=== PATIENT | female | born 1955 | race Caucasian/White ===

== ENCOUNTER 2019-11-05 10:34 | Inpatient (IN) ==
[2019-11-05] MEDS ORDERED: ONDANSETRON 4 MG/2 ML VIAL IV PRN ×4 (11:18→16:09)
--- NOTE | 2019-11-05 11:21 | Cat Scan Report ---
INDICATION: flank pain, hematuria COMPARISON: Previous abdominal MRI scan dated 01/28/2019. Previous abdominal ultrasound dated 01/08/2019. Previous CT scan dated 12/16/2007 TECHNIQUE: Axial images were obtained through the abdomen and pelvis. Sagittally and coronally reformatted images. FINDINGS: Lung bases:No pulmonary parenchymal density. No calcified or noncalcified nodule. No pleural or pericardial effusion Liver:Negative to the limits of noncontrast enhanced examination. Liver contour is smooth without evidence for cirrhosis Gallbladder, billary:Surgical clips in the gallbladder fossa. No dilated bile ducts Spleen:No splenomegaly Pancreas:No pancreatic mass. No peripancreatic abnormality Adrenal glands:Negative Kidneys, ureters, bladder: Negative left kidney. No hydronephrosis. No obstructing or nonobstructing calculi. No detectable left renal mass Severe right hydronephrosis and dilated right renal pelvis. Appearance is consistent with congenital ureteropelvic junction obstruction. Hydronephrosis is slightly worse than on 12/16/2007. Findings are essentially unchanged since 01/08/2019 and 01/28/2019. No obstructing or nonobstructing right renal calculi. No detectable mass No hydroureter. No ureteral stone No bladder calculi. Bladder wall appears relatively thick but a discrete mass is not identified. Bladder mildly distended. Gastrointestinal: Surgical sutures at the cecum. No detectable colonic mass. There is no diverticulosis or diverticulitis. No evidence for appendicitis. Small bowel is negative. No mechanical small bowel obstruction. Vascular:There is extensive atherosclerotic calcification. There is ectasia of the distal descending thoracic aorta. This measures 2.7 cm in AP dimension. Infrarenal abdominal aorta measures 1.9 cm in AP dimension. Lymphatic:No retroperitoneal adenopathy. No significant mesenteric adenopathy. Mesentery, peritoneum:No free intraperitoneal fluid. No intra-abdominal abscess. No pneumoperitoneum Reproductive:Prostate is not enlarged Musculoskeletal:No lumbar compression fractures. Multilevel degenerative disc disease. There is L4-5 anterolisthesis due to severe degenerative facet arthropathy. Sacrum and pelvis are negative. Hips are negative. No fracture. No lytic lesion. IMPRESSION: 1. Severe right hydronephrosis and dilated right renal pelvis consistent with congenital ureteropelvic junction obstruction. No obstructing calculi. These findings are chronic 2. Severe atherosclerotic disease. No abdominal aortic aneurysm 3. Multilevel degenerative disc disease. Facet arthropathy with L4-5 anterolisthesis The exam was performed using radiation dose optimization techniques including, but not limited to, automated exposure control, adjustment of the mA and/or kV according to patient size and use of iterative reconstruction technique. Interpreted and Authenticated by: Elmer Leslie 11/05/19
[2019-11-05 11:45] LABS: Basophils # (Auto) 0.08 K/mcL (0.00-0.30); Basophils % (Auto) 0.4 % (0.0-2.0); Eosinophils # (Auto) 0.03 K/mcL (0.00-0.70); Eosinophils % (Auto) 0.2 % (0.0-7.0); Granulocytes % (Auto) 80.5 % (38.0-78.0); Hematocrit 41.4 % (34.1-44.9); Hemoglobin 13.9 g/dL (11.2-15.7); Lymphocytes # (Auto) 1.98 K/mcL (1.50-4.80); Mean Cell Volume 98.3 fL (80.0-100.0); Mean Corpuscular HGB Conc 33.6 g/dL (31.0-36.0); Mean Platelet Volume 10.4 fL (7.4-10.4); Monocytes # (Auto) 1.41 K/mcL (0.10-0.90); Monocytes % (Auto) 7.9 % (1.0-12.0); Platelet Count 280 K/mcL (140-440); RBC 4.21 M/mcL (3.59-5.38); Red Cell Distribution Width 13.3 % (11.5-14.5); WBC 17.9 K/mcL (4.50-11.00)
[2019-11-05] MEDS ORDERED: cefTRIAXone 1 GM VIAL IV ONE (12:05)
--- NOTE | 2019-11-05 12:50 | Emergency Department Note ---
General Adult HPI - General Chief complaint: Flank Pain Stated complaint: flank pain Time Seen by Provider: 11/05/19 10:41 Source: patient Mode of arrival: ambulatory Limitations: no limitations - History of Present Illness HPI Narrative: Patient presents emergency department for evaluation of dysuria and hematuria. Symptoms started last night. Patient had associated flank pain. She describes an episode yesterday which lasted for about an hour where she had uncontrollable shaking chills. She has prior history of congenital renal abnormalities. No prior history of kidney stones. No nausea or vomiting. No other complaints. - Related Data Home Medications Medication Instructions Recorded Confirmed docusate calcium 240 mg capsule 240 mg PO QDAY cap 01/11/15 11/05/19 aspirin 81 mg tablet,delayed 81 mg PO QDAY 07/10/16 11/05/19 release lithium carbonate 300 mg capsule 300 mg PO QPM cap 07/26/17 11/05/19 lorazepam 0.5 mg tablet 0.5 mg PO .Q6-8H PRN tab 05/16/18 11/05/19 cholecalciferol (vitamin D3) 100 4,000 unit PO QDAY 08/06/18 11/05/19 mcg (4,000 unit) capsule quetiapine 50 mg tablet 50 mg PO QHS tab 01/06/19 11/05/19 Previous Rx's Medication Instructions Recorded tramadol 50 mg tablet 50 mg PO Q4H PRN #180 tab 09/03/19 amlodipine 5 mg tablet 5 mg PO BID #180 tab 09/10/19 metoprolol tartrate 25 mg tablet 12.5 mg PO BID #135 tab 09/30/19 losartan 25 mg tablet 25 mg PO BID #90 tab 10/08/19 Allergies Allergy/AdvReac Type Severity Reaction Status Date / Time diazepam [From Valium] Allergy Unknown Confusion Verified 11/05/19 10:37 Review of Systems Review of Systems: As above, all other systems reviewed and negative. Past Medical History - Past Medical History Attestation: Yes: The following information was validated with the patient. [facility] Narrative: Reviewed, please see nursing documentation - Social History smoking status: Current every day smoker Physical Exam Limitations: no limitations General appearance: alert Head: atraumatic, normocephalic Eye: Present: normal appearance, PERRL, EOMI ENT: Present: normal exam Neck: Present: normal inspection Abdominal: Present: other (Soft, nondistended, no tenderness elicited on palpation.) Extremities: Present: normal inspection Neurological: Present: alert, oriented X3, CN II-XII intact Psychiatric: Present: normal affect Skin: Present: warm Course Vital Signs Temperature 100.0 F H 11/05/19 10:35 Pulse Rate 82 11/05/19 10:35 Respiratory Rate 16 11/05/19 10:35 Blood Pressure 138/108 11/05/19 10:35 Temperature 100.5 F H 11/05/19 12:12 Pulse Rate 71 11/05/19 12:12 Respiratory Rate 16 11/05/19 12:12 Blood Pressure 134/67 11/05/19 12:12 Pulse Oximetry (%) 97 11/05/19 12:12 Medical Decision Making - MDM Narrative Medical decision making narrative: Labs reviewed as per the electronic medical record. CMP is pending and had to be redrawn due to hemolysis. Patient is given Rocephin. Blood cultures were ordered. On recheck of her vitals she is now meeting sepsis criteria. She is hydrated with IV fluids. I spoke with Dr. Olivarez on-call hospitalist. Case reviewed in detail over the phone. Hospitalist agreed with admission. I discussed findings with the patient. Her questions were answered. She is agreeable with the plan. Impression: UTI, sepsis Plan: As above - Lab Data Lab results reviewed: Yes I reviewed the patient's lab results. Result diagrams: 11/05/19 11:03 11/05/19 11:03 Lab Results 11/05/19 11/05/19 11/05/19 Range/Units 11:03 11:03 11:03 WBC 17.9 H (4.50-11.00) K/mcL RBC 4.21 (3.59-5.38) M/mcL Hgb 13.9 (11.2-15.7) g/dL Hct 41.4 (34.1-44.9) % MCV 98.3 (80.0-100.0) fL MCH 33.0 (26.0-34.0) pg MCHC 33.6 (31.0-36.0) g/dL RDW 13.3 (11.5-14.5) % Plt Count 280 (140-440) K/mcL MPV 10.4 (7.4-10.4) fL Gran % 80.5 H (38.0-78.0) % Lymph % (Auto) 11.0 L (15.5-49.0) % [place] % (Auto) 7.9 (1.0-12.0) % Eos % (Auto) 0.2 (0.0-7.0) % Baso % (Auto) 0.4 (0.0-2.0) % Gran # 14.44 H (1.80-8.00) K/mcL Lymph # (Auto) 1.98 (1.50-4.80) K/mcL [place] # (Auto) 1.41 H (0.10-0.90) K/mcL Eos # (Auto) 0.03 (0.00-0.70) K/mcL Baso # (Auto) 0.08 (0.00-0.30) K/mcL VBG Lactic Acid 1.9 (0.5-2.0) mmol/L Sodium TNP Potassium TNP Chloride TNP Carbon Dioxide TNP Anion Gap TNP BUN TNP Creatinine TNP GFR Calculation TNP Glucose TNP Calcium TNP Total Bilirubin TNP AST TNP ALT TNP Alkaline Phosphatase TNP Total Protein TNP Albumin TNP Globulin TNP Albumin/Globulin Ratio TNP - Radiology Data Radiology results reviewed: Yes I reviewed the patient's radiology results. Disposition Pt seen by BUDGET EXAMINER/PA only: No Clinical Impression: UTI (urinary tract infection), Sepsis Disposition: Still a Patient Referrals: Rahul Hartmann MD [Primary Care Provider] -
[2019-11-05] MEDS ORDERED: 0.9 % SODIUM CHLORIDE 1,000 ML IV ONE (12:51)
[2019-11-05 13:24] LABS: Chloride 101 mmol/L (96-108)
[2019-11-05 13:26] LABS: Appearance,Urine CLOUDY; Bacteria,Urine 0 /hpf (0); Bilirubin,Urine NEG (NEG); Color,Urine AMBER; Culture Indicated,Urine YES; Glucose,Urine (UA) NEGATIVE (NEG); Ketones,Urine NEG (NEG); Leukocyte Esterase,Urine 250 /uL (NEG); Nitrate,Urine POS (NEG); Protein,Urine 100 mg/dL (NEG); Urine Blood 0.2 mg/dL (<0.03); Urine RBC 152 /hpf (0-1); Urine Squamous Epithelial Cell 1 /hpf (0-4); Urine Transitional Epi Cells 3 /hpf (0-2); Urine WBC > 182 /hpf (0-4); Urobilinogen,Urine NEG (NEG)
[2019-11-05 13:32] LABS: ALT/SGPT 14 U/l (0-40); AST/SGOT 22 U/l (0-37); Albumin 4.1 gm/dL (3.2-5.2); Albumin/Globulin Ratio 1.2 (1.0-2.3); Alkaline Phosphatase 77 U/L (39-117); Bilirubin,Total 0.4 mg/dL (0.0-1.0); Blood Urea Nitrogen 13 mg/dl (8-23); Calcium 10.4 mg/dl (8.6-10.4); Carbon Dioxide 25 mmol/L (22-30); Globulin 3.3 gm/dL (2.2-3.7); Glomerular Filtration Rate 67; Glucose 90 mg/dL (70-105)
[2019-11-05] MEDS ORDERED: ACETAMINOPHEN 325 MG TABLET PO ONE ×2 (14:36→22:07)
[2019-11-05] MEDS ORDERED: 0.9 % SODIUM CHLORIDE 1,000 ML IV SCH (15:30)
[2019-11-05] MEDS ORDERED: cefTRIAXone 1 GM in DEXTROSE 5% IN WATER 50 ML IV SCH (15:30)
[2019-11-05] MEDS ORDERED: traMADol 50 MG TABLET PO PRN (15:31)
[2019-11-05] MEDS ORDERED: LORazepam 0.5 MG TABLET PO PRN (15:31)
[2019-11-05] MEDS ORDERED: ACETAMINOPHEN 160 MG/5 ML ORAL.SOL PO PRN ×2 (15:33→16:09)
--- NOTE | 2019-11-05 15:40 | Internal Med History&Physical ---
Medical - H&P: [facility] Patient information: Note initiated : 11/05/19 at 3:36 pm Service Date, if different from initiated Date: [] Patient: Shannan Whitaker a 64 y/o F admitted on for Flank Pain . Chief Complaint: [Dysuria for 1 day] History of present illness: Ms. Whitaker is a 64 year old F with a history of high blood pressure, history of breast cancer and bipolar disorder who presented to the ER due to urinary symp toms for 1 day. As per patient, she started to have dysuria, urinary frequency and urgency at about 2 PM yesterday associated with fever, chills, right flank pain, and mild headache. In the ER, urinalysis was compatible with a UTI 1 dose of ceftriaxone was given in the ER. When I saw this patient in the ER, symptoms mentioned above, she denied dizziness, chest pain, shortness of breath, larisa pain, nausea, vomiting, or gross pneumaturia. No recent travel or sick contact. Review of systems: Positive for urinary symptoms, fever, chills, and headache all other systems were reviewed and are negative. Medical - H&P: PMH Medical history: Blood pressure, history of breast cancer, bipolar disorder Medical - H&P: Meds Home Medications Medication Instructions Recorded Confirmed Type docusate calcium 240 mg capsule 240 mg PO QDAY cap 01/11/15 11/05/19 History aspirin 81 mg tablet,delayed 81 mg PO QDAY 07/10/16 11/05/19 History release lithium carbonate 300 mg capsule 300 mg PO QPM cap 07/26/17 11/05/19 History lorazepam 0.5 mg tablet 0.5 mg PO .Q6-8H PRN tab 05/16/18 11/05/19 History cholecalciferol (vitamin D3) 100 4,000 unit PO QDAY 08/06/18 11/05/19 History mcg (4,000 unit) capsule quetiapine 50 mg tablet 50 mg PO QHS tab 01/06/19 11/05/19 History tramadol 50 mg tablet 50 mg PO Q4H PRN #180 tab 09/03/19 11/05/19 Rx amlodipine 5 mg tablet 5 mg PO BID #180 tab 09/10/19 11/05/19 Rx metoprolol tartrate 25 mg tablet 12.5 mg PO BID #135 tab 09/30/19 11/05/19 Rx losartan 25 mg tablet 25 mg PO BID #90 tab 10/08/19 11/05/19 Rx Allergies Allergy/AdvReac Type Severity Reaction Status Date / Time diazepam [From Valium] Allergy Unknown Confusion Verified 11/05/19 10:37 Medical - H&P: Exam - Constitutional Vitals: Temp Pulse Resp BP Pulse Ox 100.5 F H 92 H 18 149/67 100 11/05/19 14:42 11/05/19 14:42 11/05/19 14:42 11/05/19 14:42 11/05/19 14:42 - Other Additional findings: General -no acute distress Eyes - PERRLA, EOM intact ENT no rhinorrhea, no noticeable or palpable swelling, no redness or rash around throat or on face Neck supple, no JVD, no thyromegaly Respiratory: Lungs -clear; no wheezing or crackles. Cardiovascular - RRR no m/r/g, GI - Normal bowel sounds, no distended, soft. Right CVA tenderness Extremeties - No edema, cyanosis or clubbing Hemo/lymphatic/immune no lymphadenopathy Neurological Alert and oriented x 3, no neurological deficits. Psychiatry flat affect Medical - H&P: Reslt - Labs CBC & Chem 7: 11/05/19 11:03 11/05/19 12:19 Labs: Short CBC 11/05/19 Range/Units 11:03 WBC 17.9 H (4.50-11.00) K/mcL Hgb 13.9 (11.2-15.7) g/dL Hct 41.4 (34.1-44.9) % Plt Count 280 (140-440) K/mcL BMP 11/05/19 11/05/19 11:03 12:19 Sodium TNP 136 Potassium TNP 4.4 Chloride TNP 101 Carbon Dioxide TNP 25 BUN TNP 13 Creatinine TNP 0.9 Glucose TNP 90 Calcium TNP 10.4 Liver Function 11/05/19 11/05/19 Range/Units 11:03 12:19 Total Bilirubin TNP 0.4 AST TNP 22 ALT TNP 14 Alkaline Phosphatase TNP 77 Albumin TNP 4.1 Urine 11/05/19 Range/Units 12:20 Urine Color Lisseth Urine Appearance Cloudy Urine pH 6.0 (5.0-9.0) Ur Specific [place] 1.010 (1.000-1.035) Urine Protein 100 A (NEG) mg/dL Urine Glucose (UA) Negative (NEG) mg/dL Medical - H&P: A/P - Narrative A/P Narrative: Assessment: 1. Acute UTI/pyelonephritis 2. HTN 3. Hx of breast cancer 4. Bipolar disorder 5. Hydronephrosis 6. Microscopic hematuria Plan: 1. CT abd - Severe right hydronephrosis and dilated right renal pelvis consi stent with congenital ureteropelvic junction obstruction. No obstructing calculi. These findings are chronic Urinalyses compatible with UTI Blood and urine culture Ceftriaxone 1 g IV every 24 hours Pain management including IV morphine 2. Continue home medications metoprolol 12.5 mg twice daily, losartan 25 mg twice daily, amlodipine 5 mg twice daily 3. For breast cancer, follow with PCP and oncologist 4. For hydronephrosis, follow with the PCP and urologist 5. For hematuria, could be due to infection. Monitor H&H 6. DVT prophylaxis: Lovenox. If hematuria continues, would stop Lovenox. 7. CODE STATUS: Full
[2019-11-05] MEDS: 0.9 % SODIUM CHLORIDE 1,000 ML IV SCH (16:54)
[2019-11-05] MEDS ORDERED: METOPROLOL TARTRATE 25 MG TABLET PO SCH (21:00)
[2019-11-05] MEDS ORDERED: amLODIPine 5 MG TABLET PO SCH (21:00)
[2019-11-05] MEDS ORDERED: DOCUSATE SODIUM 100 MG CAPSULE PO SCH (21:00)
[2019-11-05] MEDS ORDERED: QUEtiapine 100 MG TABLET PO SCH (21:00)
[2019-11-05] MEDS ORDERED: LOSARTAN 25 MG TABLET PO SCH (21:00)
[2019-11-05] MEDS ORDERED: SENNOSIDES 1 TABLET PO SCH (21:00)
[2019-11-05] MEDS ORDERED: LITHIUM CARBONATE 150 MG CAPSULE PO SCH (21:00)
[2019-11-05] MEDS: METOPROLOL TARTRATE 25 MG TABLET PO SCH (21:22)
[2019-11-05] MEDS: LOSARTAN 25 MG TABLET PO SCH (21:22)
[2019-11-05] MEDS: LITHIUM CARBONATE 150 MG CAPSULE PO SCH (21:23)
[2019-11-05] MEDS: QUEtiapine 100 MG TABLET PO SCH (21:24)
[2019-11-05] MEDS: LORazepam 0.5 MG TABLET PO PRN (21:24)
[2019-11-05] MEDS: SENNOSIDES 1 TABLET PO SCH (21:24)
[2019-11-05] MEDS: amLODIPine 5 MG TABLET PO SCH (21:24)
[2019-11-05] MEDS: DOCUSATE SODIUM 100 MG CAPSULE PO SCH (21:25)
[2019-11-05] MEDS: 0.9 % SODIUM CHLORIDE 10 ML SYRINGE IV SCH (21:35)
[2019-11-05] MEDS ORDERED: ACETAMINOPHEN 325 MG TABLET PO PRN (21:56)
[2019-11-05] MEDS ORDERED: 0.9 % SODIUM CHLORIDE 10 ML SYRINGE IV SCH (22:00)
[2019-11-05] MEDS: PIPERACILLIN SODIUM/TAZOBACTAM 3.375 GM in DEXTROSE 5% IN WATER 50 ML IV SCH (23:45)
[2019-11-06] MEDS: 0.9 % SODIUM CHLORIDE 10 ML SYRINGE IV SCH ×3 (05:03→22:09)
[2019-11-06] MEDS: PIPERACILLIN SODIUM/TAZOBACTAM 3.375 GM in DEXTROSE 5% IN WATER 50 ML IV SCH ×4 (05:33→23:28)
[2019-11-06] MEDS: 0.9 % SODIUM CHLORIDE 1,000 ML IV SCH ×3 (05:33→23:43)
[2019-11-06] MEDS ORDERED: ACETAMINOPHEN 325 MG TABLET PO ONE (05:42)
[2019-11-06 06:45] LABS: Basophils # (Auto) 0.06 K/mcL (0.00-0.30); Basophils % (Auto) 0.4 % (0.0-2.0); Eosinophils # (Auto) 0.08 K/mcL (0.00-0.70); Eosinophils % (Auto) 0.5 % (0.0-7.0); Hematocrit 39.1 % (34.1-44.9); Hemoglobin 12.6 g/dL (11.2-15.7); Lymphocytes # (Auto) 3.27 K/mcL (1.50-4.80); Lymphocytes % (Auto) 19.6 % (15.5-49.0); Mean Cell Volume 100.8 fL (80.0-100.0); Mean Corpuscular HGB Conc 32.2 g/dL (31.0-36.0); Mean Platelet Volume 10.3 fL (7.4-10.4); Monocytes # (Auto) 0.92 K/mcL (0.10-0.90); Monocytes % (Auto) 5.5 % (1.0-12.0); Platelet Count 216 K/mcL (140-440); RBC 3.88 M/mcL (3.59-5.38); Red Cell Distribution Width 13.7 % (11.5-14.5); WBC 16.7 K/mcL (4.50-11.00)
[2019-11-06 06:58] LABS: ALT/SGPT 111 U/l (0-40); AST/SGOT 81 U/l (0-37); Albumin 3.4 gm/dL (3.2-5.2); Albumin/Globulin Ratio 1.1 (1.0-2.3); Alkaline Phosphatase 92 U/L (39-117); Bilirubin,Total 0.6 mg/dL (0.0-1.0); Blood Urea Nitrogen 15 mg/dl (8-23); Carbon Dioxide 20 mmol/L (22-30); Chloride 104 mmol/L (96-108); Globulin 3.1 gm/dL (2.2-3.7); Glomerular Filtration Rate 53; Glucose 93 mg/dL (70-105)
[2019-11-06] MEDS: VITAMIN D3 1,000 UNIT TABLET PO SCH (08:04)
[2019-11-06] MEDS: DOCUSATE SODIUM 100 MG CAPSULE PO SCH ×2 (08:04→20:35)
[2019-11-06] MEDS: METOPROLOL TARTRATE 25 MG TABLET PO SCH ×2 (08:05→20:35)
[2019-11-06] MEDS: ASPIRIN 81 MG TAB.CHEW PO SCH (08:05)
[2019-11-06] MEDS: amLODIPine 5 MG TABLET PO SCH ×2 (08:05→20:35)
[2019-11-06] MEDS: LOSARTAN 25 MG TABLET PO SCH ×2 (08:05→20:35)
[2019-11-06] MEDS: ENOXAPARIN 40 MG/0.4 ML SYRINGE SQ SCH (08:05)
[2019-11-06] MEDS ORDERED: ENOXAPARIN 40 MG/0.4 ML SYRINGE SQ SCH (09:00)
[2019-11-06] MEDS ORDERED: ASPIRIN 81 MG TAB.CHEW PO SCH (09:00)
[2019-11-06] MEDS ORDERED: cefTRIAXone 1 GM VIAL IV SCH ×2 (09:00)
[2019-11-06] MEDS ORDERED: VITAMIN D3 1,000 UNIT TABLET PO SCH (09:00)
[2019-11-06] MEDS: IBUPROFEN 200 MG TABLET PO PRN ×2 (09:59→20:36)
[2019-11-06] MEDS: traMADol 50 MG TABLET PO PRN ×2 (12:58→17:23)
--- NOTE | 2019-11-06 13:40 | Internal Med Progress Note ---
Medical - PN: Subj Patient information: Note initiated : 11/06/19 at 1:36 pm Service Date, if different from initiated Date: [] Patient: Shannan Whitaker a 64 y/o F admitted on 11/05/19 for Flank Pain . Chief Complaint: [] Interval history: Ms. Whitaker is a 64 year old F with a history of high blood pressure, history of breast cancer and bipolar disorder who presented to the ER due to urinary symptoms for 1 day. As per patient, she started to have dysuria, urinary frequency and urgency at about 2 PM yesterday associated with fever, chills, right flank pain, and mild headache. In the ER, urinalysis was compatible with a UTI 1 dose of ceftriaxone was given in the ER. When I saw this patient in the ER, symptoms mentioned above, she denied dizziness, chest pain, shortness of breath, larisa pain, nausea, vomiting, or gross pneumaturia. No recent travel or sick contact. 11/05 Today she feels much better. Stronger. But she still has low grade fever. WBC 16, it was 17 yesterday. She developed early sepsis last night. Considering her renal condition (hydronephrosis), I switched to zosyn from ceftriaxone last night. Urine culture positive for Ecoli Blood culture no growth so far. - Constitutional Vitals: Vital Signs Temp Pulse Resp BP Pulse Ox 99.7 F H 72 20 98/55 96 11/06/19 11:50 11/06/19 04:00 11/06/19 11:50 11/06/19 11:50 11/06/19 11:50 Period Temp Pulse Resp BP Sys/[place] Pulse Ox Last 24 Hr 98.1 F-103.1 F 67-92 16-20 97-149/48-78 93-100 Intake and Output 11/05/19 11/06/19 11/06/19 21:59 05:59 13:59 Intake Total 360 1599 290 Output Total 550 750 Balance -190 849 290 Weight 57.606 kg Intake & Output: Intake & Output 11/05/19 11/06/19 11/06/19 21:59 05:59 13:59 Intake Total 360 1599 290 Output Total 550 750 Balance -190 849 290 Weight 57.606 kg Intake: IV 999 50 Sodium Chloride 0.9% 1,000 ml @ 949 75 mls/hr IV .[id number] [facility] Rx#: [id number] Zosyn 3.375 gm In Dextrose 5% 50 50 in Water 50 ml @ 100 mls/hr IV Q6H [facility] Rx#:[id number] Oral 360 600 240 Output: Void Amount 550 750 Other: Meal Dinner Breakfast Percent of Meal Consumed 100% 100% Feeding Ability Independent Urine Appearance Cloudy Urine Color Bright Yellow Light Lisseth Urine Odor Normal Normal - Additional findings Additional findings: General -no acute distress Eyes - PERRLA, EOM intact ENT no rhinorrhea, no noticeable or palpable swelling, no redness or rash around throat or on face Neck supple, no JVD, no thyromegaly Respiratory: Lungs -clear; no wheezing or crackles. Cardiovascular - RRR no m/r/g, GI - Normal bowel sounds, no distended, soft. Right CVA tenderness Extremeties - No edema, cyanosis or clubbing Hemo/lymphatic/immune no lymphadenopathy Neurological Alert and oriented x 3, no neurological deficits. Psychiatry flat affect Medical - PN: Obj Da - Labs CBC & Chem 7: 11/06/19 05:45 11/06/19 05:44 Labs: Abnormal Lab Results 11/06/19 11/06/19 11/05/19 05:45 05:44 15:50 WBC 16.7 H MCV 100.8 H Gran % Lymph % (Auto) Gran # 12.38 H [place] # (Auto) 0.92 H Carbon Dioxide 20 L AST 81 H ALT 111 H NT-Pro-B Natriuret Pep 165.0 H Urine Protein Urine Occult Blood Urine Nitrate Ur Leukocyte Esterase Urine RBC Urine WBC Ur Transition Epith Cell 11/05/19 11/05/19 12:20 11:03 WBC 17.9 H MCV Gran % 80.5 H Lymph % (Auto) 11.0 L Gran # 14.44 H [place] # (Auto) 1.41 H Carbon Dioxide AST ALT NT-Pro-B Natriuret Pep Urine Protein 100 A Urine Occult Blood 0.2 A Urine Nitrate Pos A Ur Leukocyte Esterase 250 A Urine RBC 152 H Urine WBC > 182 H Ur Transition Epith Cell 3 H Meds: Medications Amlodipine Besylate (Norvasc) 5 mg PO BID [facility] Last Admin: 11/06/19 08:05 Dose: 5 mg Documented by: Aspirin (Aspirin) 81 mg PO DAILY [facility] Last Admin: 11/06/19 08:05 Dose: 81 mg Documented by: Docusate Sodium (Colace) 100 mg PO BID [facility] Last Admin: 11/06/19 08:04 Dose: 100 mg Documented by: Enoxaparin Sodium (Lovenox) 40 mg SQ DAILY [facility] Last Admin: 11/06/19 08:05 Dose: 40 mg Documented by: Sodium Chloride (Sodium Chloride 0.9%) 1,000 mls @ 75 mls/hr IV .[id number] [facility] Last Admin: 11/06/19 05:33 Dose: 75 mls/hr Documented by: Piperacillin Sod/Tazobactam (Sod 3.375 gm/ Dextrose) 50 mls @ 100 mls/hr IV Q6H [facility]; Protocol Last Admin: 11/06/19 13:07 Dose: 100 mls/hr Documented by: Ibuprofen (Motrin) 400 mg PO Q8HP PRN; Protocol PRN Reason: Per Pain Protocol Stop: 11/09/19 07:33 Last Admin: 11/06/19 09:59 Dose: 400 mg Documented by: [place] Carbonate ([place] Carbonate) 300 mg PO [facility] Last Admin: 11/05/19 21:23 Dose: 300 mg Documented by: Lorazepam (Ativan) 0.5 mg PO Q6-8HP PRN PRN Reason: anxiety Last Admin: 11/05/19 21:24 Dose: 0.5 mg Documented by: Losartan Potassium (Cozaar) 25 mg PO BID [facility] Last Admin: 11/06/19 08:05 Dose: 25 mg Documented by: Metoprolol Tartrate (Lopressor) 12.5 mg PO BID [facility] Last Admin: 11/06/19 08:05 Dose: 12.5 mg Documented by: Morphine Sulfate (Morphine) 2 mg IV Q4HP PRN; Protocol PRN Reason: Per Pain Protocol Last Admin: 11/06/19 05:42 Dose: 2 mg Documented by: Ondansetron HCl (Zofran) 4 mg IV Q6HP PRN PRN Reason: Nausea And Vomiting Pantoprazole Sodium (Protonix) 40 mg PO QAMAC [facility] Quetiapine Fumarate (Seroquel) 100 mg PO [facility] Last Admin: 11/05/19 21:24 Dose: 100 mg Documented by: Senna (Senokot) 2 tab PO [facility] Last Admin: 11/05/19 21:24 Dose: 2 tab Documented by: Sodium Chloride (Saline Flush) 10 ml IV Q8 [facility] Last Admin: 11/06/19 05:03 Dose: Not Given Documented by: Tramadol HCl (Ultram) 50 mg PO Q4HP PRN PRN Reason: MILD TO MODERATE PAIN Last Admin: 11/06/19 12:58 Dose: 50 mg Documented by: Vitamin D (Vitamin D3) 4,000 unit PO DAILY [facility] Last Admin: 11/06/19 08:04 Dose: 4,000 unit Documented by: Medical - PN: A/P - Time Spent With Patient Total time spent is greater than 50% in coordination of care (as documented) at patient's floor/unit and/or counseling patient: - Narrative A/P Narrative: Assessment: 1. Acute UTI/pyelonephritis 2. HTN 3. Hx of breast cancer 4. Bipolar disorder 5. Hydronephrosis 6. Microscopic hematuria Plan: 1. CT abd - Severe right hydronephrosis and dilated right renal pelvis consistent with congenital ureteropelvic junction obstruction. No obstructing calculi. These findings are chronic Urinalyses compatible with UTI But she still has low grade fever. WBC 16, it was 17 yesterday. She developed early sepsis last night. Considering her renal condition (hydronephrosis), I switched to zosyn from ceftriaxone last night. Urine culture positive for Ecoli Blood culture no growth so far Pain management including IV morphine 2. Continue home medications metoprolol 12.5 mg twice daily, losartan 25 mg twice daily, amlodipine 5 mg twice daily 3. For breast cancer, follow with PCP and oncologist 4. For hydronephrosis, follow with the PCP and urologist 5. For hematuria, could be due to infection. Monitor H&H 6. DVT prophylaxis: Lovenox. If hematuria continues, would stop Lovenox. 7. CODE STATUS: Full Medical - PN: Qual - VTE Deep Vein Thrombosis/Pulmonary Embolism Present on Admission: No
[2019-11-06] MEDS: LITHIUM CARBONATE 150 MG CAPSULE PO SCH (20:35)
[2019-11-06] MEDS: QUEtiapine 100 MG TABLET PO SCH (20:35)
[2019-11-06] MEDS: SENNOSIDES 1 TABLET PO SCH (20:35)
[2019-11-06] MEDS: LORazepam 0.5 MG TABLET PO PRN (20:36)
[2019-11-06] MEDS ORDERED: 0.9 % SODIUM CHLORIDE 250 ML IV ONE (23:37)
[2019-11-07] MEDS ORDERED: 0.9 % SODIUM CHLORIDE 250 ML IV ONE (01:50)
[2019-11-07] MEDS: PIPERACILLIN SODIUM/TAZOBACTAM 3.375 GM in DEXTROSE 5% IN WATER 50 ML IV SCH ×2 (05:48→12:28)
[2019-11-07] MEDS: 0.9 % SODIUM CHLORIDE 10 ML SYRINGE IV SCH ×2 (05:49→14:56)
[2019-11-07 06:56] LABS: Basophils # (Auto) 0.07 K/mcL (0.00-0.30); Basophils % (Auto) 0.7 % (0.0-2.0); Eosinophils # (Auto) 0.23 K/mcL (0.00-0.70); Eosinophils % (Auto) 2.4 % (0.0-7.0); Granulocytes % (Auto) 72.3 % (38.0-78.0); Hematocrit 32.9 % (34.1-44.9); Hemoglobin 10.6 g/dL (11.2-15.7); Lymphocytes # (Auto) 1.43 K/mcL (1.50-4.80); Lymphocytes % (Auto) 14.7 % (15.5-49.0); Mean Cell Volume 99.1 fL (80.0-100.0); Mean Corpuscular HGB Conc 32.2 g/dL (31.0-36.0); Mean Platelet Volume 9.9 fL (7.4-10.4); Monocytes # (Auto) 0.96 K/mcL (0.10-0.90); Monocytes % (Auto) 9.9 % (1.0-12.0); Platelet Count 210 K/mcL (140-440); RBC 3.32 M/mcL (3.59-5.38); Red Cell Distribution Width 13.5 % (11.5-14.5); WBC 9.7 K/mcL (4.50-11.00)
[2019-11-07 07:10] LABS: ALT/SGPT 83 U/l (0-40); AST/SGOT 45 U/l (0-37); Albumin 2.9 gm/dL (3.2-5.2); Alkaline Phosphatase 92 U/L (39-117); Bilirubin,Total 0.2 mg/dL (0.0-1.0); Blood Urea Nitrogen 12 mg/dl (8-23); Calcium 9.3 mg/dl (8.6-10.4); Carbon Dioxide 21 mmol/L (22-30); Glomerular Filtration Rate 67; Glucose 89 mg/dL (70-105)
[2019-11-07 07:21] LABS: Chloride 109 mmol/L (96-108)
[2019-11-07] MEDS ORDERED: PANTOPRAZOLE 40 MG PACKET PO SCH (07:30)
[2019-11-07] MEDS: traMADol 50 MG TABLET PO PRN ×2 (08:41→14:55)
[2019-11-07] MEDS: 0.9 % SODIUM CHLORIDE 1,000 ML IV SCH (08:46)
[2019-11-07] MEDS ORDERED: amLODIPine 5 MG TABLET PO SCH (09:00)
[2019-11-07] MEDS: LOSARTAN 25 MG TABLET PO SCH (10:18)
[2019-11-07] MEDS: DOCUSATE SODIUM 100 MG CAPSULE PO SCH (10:18)
[2019-11-07] MEDS: ASPIRIN 81 MG TAB.CHEW PO SCH (10:18)
[2019-11-07] MEDS: METOPROLOL TARTRATE 25 MG TABLET PO SCH (10:18)
[2019-11-07] MEDS: VITAMIN D3 1,000 UNIT TABLET PO SCH (10:19)
[2019-11-07] MEDS: ENOXAPARIN 40 MG/0.4 ML SYRINGE SQ SCH (10:19)
[2019-11-07] MEDS: IBUPROFEN 200 MG TABLET PO PRN (10:20)
--- NOTE | 2019-11-07 13:27 | Discharge Summary ---
Medical - DS: Prov Patient information: Note initiated : 11/07/19 at 1:23 pm Service Date, if different from initiated Date: [] Patient: Shannan Whitaker a 64 y/o F admitted on 11/05/19 for Flank Pain . Chief Complaint: [] Refer to HP by Geovani Olivarez M.D.> 11/05/19 Ms. Whitaker is a 64 year old F with a history of high blood pressure, history of breast cancer and bipolar disorder who presented to the ER due to urinary symptoms for 1 day. As per patient, she started to have dysuria, urinary frequency and urgency at about 2 PM yesterday associated with fever, chills, right flank pain, and mild headache. In the ER, urinalysis was compatible with a UTI 1 dose of ceftriaxone was given in the ER. When I saw this patient in the ER, symptoms mentioned above, she denied dizziness, chest pain, shortness of breath, larisa pain, nausea, vomiting, or gross pneumaturia. No recent travel or sick contact. Date of admission: 11/05/19 15:55 Discharge date: 11/07/19 Primary care physician: Rahul Hartmann Consults: 11/05/19 Consult to Physician [CONS] Stat Comment: Consulting Provider: Geovani Olivarez Reason For Exam: Physician to Consult Medical - DS: Meds - Discharge Medications Prescriptions: Ciprofloxacin HCl [Cipro] 500 mg PO BID 10 Days #20 tab Transmission Status: Pending to [facility] Active and Home Medications: Home Medications docusate calcium 240 mg capsule 240 mg PO QDAY cap 01/11/15 [History Confirmed 11/05/19 Last Taken 11/04/19 21:00 240 mg.] aspirin 81 mg tablet,delayed release 81 mg PO QDAY 07/10/16 [History Confirmed 11/05/19 Last Taken 11/05/19 08:00 81 mg.] lithium carbonate 300 mg capsule 300 mg PO QPM cap 07/26/17 [History Confirmed 11/05/19 Last Taken 11/04/19 21:00 300 mg.] lorazepam 0.5 mg tablet 0.5 mg PO .Q6-8H PRN tab 05/16/18 [History Confirmed 11/05/19 Last Taken 11/04/19 21:00 0.5 mg.] cholecalciferol (vitamin D3) 100 mcg (4,000 unit) capsule 4,000 unit PO QDAY 08/06/18 [History Confirmed 11/05/19 Last Taken 11/04/19 21:00 4000 units] quetiapine 50 mg tablet 100 mg PO QHS tab 01/06/19 [History Confirmed 11/05/19 Last Taken 11/04/19 21:00 100 mg.] tramadol 50 mg tablet 50 mg PO Q4H PRN #180 tab 09/03/19 [Rx Confirmed 11/05/19 Last Taken 11/01/19 12:00 50 mg.] amlodipine 5 mg tablet 5 mg PO BID #180 tab 09/10/19 [Rx Confirmed 11/05/19 Last Taken 11/05/19 08:00 5 mg.] metoprolol tartrate 25 mg tablet 12.5 mg PO BID #135 tab 09/30/19 [Rx Confirmed 11/05/19 Last Taken 11/05/19 08:00 25 mg.] losartan 25 mg tablet 25 mg PO BID #90 tab 10/08/19 [Rx Confirmed 11/05/19 Last Taken 11/05/19 08:00 25 mg.] Medical - DS: Hosp Hospital Course: 1. Acute UTI/pyelonephritis CT abd - Severe right hydronephrosis and dilated right renal pelvis consistent with congenital ureteropelvic junction obstruction. No obstructing calculi. These findings are chronic Urinalyses compatible with UTI But she still has low grade fever at time. But her WBC normalized today. Urine culture positive for Ecoli - sensitive to all antibiotics Blood culture no growth so far I will discharge her on cipro x 10 days f/u with pcp and urology 2. HTN She is on home medications metoprolol 12.5 mg twice daily, losartan 25 mg twice daily, amlodipine 5 mg twice daily. Last night her BP was very soft. I will discontinue metoprolol and amlodipine, and continue losartan 25 mg twice daily only. f/u with pcp 3. Hx of breast cancer follow with PCP and oncologist 4. Bipolar disorder She is on multiple psych meds including lithium, ativan, and quetiapine. I feel she may not tolerate these meds and will not discharge her on these meds. f/u with pcp and psychiatry. 5. Hydronephrosis follow with the PCP and urologist 6. Microscopic hematuria Hb 10 today. Repeat UA and CBC in 3 days f/u with pcp and urology 11/05 Today she feels much better. Stronger. But she still has low grade fever. WBC 16, it was 17 yesterday. She developed early sepsis last night. Considering her renal condition (hydronephrosis), I switched to zosyn from ceftriaxone last night. Urine culture positive for Ecoli Blood culture no growth so far. 11/06 Today she feels fine. Does not have any complaints. Last night her BP was very soft. She was given IV NS bolus which improved her BP. She still has mild spike fever but her WBC normalized today. Urine culture and sensitivity available - Ecoli, sensitive to all antibiotics. Initially I would like to keep her in hospital for one more day today because I am concerned about her BP, spike fever and too much psych/narcotic meds. If she stays one more day, I could monitor her bp, adjust her meds and continue one more day IV antibiotics. Discussed with her my concerns. She would still like to go home today. So she will be discharged her to home today. I advised her that she needs to see pcp/walk in clinic on Saturday, psych cheryl (at best on Saturday/) and urology in one week. I will discontinue amlodipine, metoprolol, lithium, ativan, and quetiapine. She needs to have pcp and psych review her meds. She promised to me to do so. I prescribed cipro 400mg bid x 10days. Repeat CBC and UA in 3 days. Call pcp or go to ER immediately for medical issues. Discharge diagnosis: Acute UTI/pyelonephritis - Time Spent with Patient Total time spent providing and/or coordinating discharge services: Greater than 30 minutes Medical - DS: Exam - Constitutional Vitals: Vital Signs Temp Pulse Resp BP Pulse Ox 11/07/19 12:00 99.3 F H 20 113/71 95 11/07/19 07:39 100.4 F H 20 118/70 92 11/07/19 04:00 98.6 F 68 16 127/64 90 11/07/19 03:00 61 111/61 91 11/07/19 02:39 61 16 84/57 90 11/07/19 01:49 67 82/49 90 11/07/19 00:40 83/48 11/07/19 00:19 88/47 11/06/19 23:35 98.4 F 67 14 82/40 92 11/06/19 19:34 98.5 F 68 16 143/72 96 11/06/19 16:00 99 F 20 107/64 93 Intake and Output 11/06/19 11/07/19 11/07/19 21:59 05:59 13:59 Intake Total 1530 700 50 Output Total 0587 930 1663 Balance 130 500 -1550 Intake: IV 1050 300 50 Sodium Chloride 0.9% 1,000 ml @ 1000 75 mls/hr IV [id number] [facility] Rx#: [id number] Sodium Chloride 0.9% 250 ml @ 250 Wide Open IV BOLUS ONE Rx#: [id number] Zosyn 3.375 gm In Dextrose 5% 50 50 50 in Water 50 ml @ 100 mls/hr IV Q6H [facility] Rx#:[id number] Oral 480 400 Output: Void Amount [phone] Other: Meal Dinner Percent of Meal Consumed 100% Feeding Ability Independent Urine Appearance Cloudy Cloudy Cloudy Urine Color Bright Yellow Dark Yellow Bright Yellow Urine Odor Normal Normal Weight 57.606 kg - Other Additional findings: General -no acute distress Eyes - PERRLA, EOM intact ENT no rhinorrhea, no noticeable or palpable swelling, no redness or rash around throat or on face Neck supple, no JVD, no thyromegaly Respiratory: Lungs -clear; no wheezing or crackles. Cardiovascular - RRR no m/r/g, GI - Normal bowel sounds, no distended, soft. Right CVA tenderness Extremeties - No edema, cyanosis or clubbing Hemo/lymphatic/immune no lymphadenopathy Neurological Alert and oriented x 3, no neurological deficits. Psychiatry flat affect Medical - DS: Data Labs on day of discharge: Labs from last 24 hours 11/07/19 11/07/19 06:00 05:59 WBC 9.7 RBC 3.32 L Hgb 10.6 L Hct 32.9 L MCV 99.1 MCH 31.9 MCHC 32.2 RDW 13.5 Plt Count 210 MPV 9.9 Gran % 72.3 Lymph % (Auto) 14.7 L [place] % (Auto) 9.9 Eos % (Auto) 2.4 Baso % (Auto) 0.7 Gran # 7.05 Lymph # (Auto) 1.43 L [place] # (Auto) 0.96 H Eos # (Auto) 0.23 Baso # (Auto) 0.07 Sodium 141 Potassium 4.1 Chloride 109 H Carbon Dioxide 21 L Anion Gap 11.0 BUN 12 Creatinine 0.9 GFR Calculation 67 Glucose 89 Calcium 9.3 Total Bilirubin 0.2 AST 45 H ALT 83 H Alkaline Phosphatase 92 Total Protein 5.9 Albumin 2.9 L Globulin 3.0 Albumin/Globulin Ratio 1.0 Preliminary micro results at discharge 11/05/19 12:50 Blood Culture - Preliminary Blood 11/05/19 12:43 Blood Culture - Preliminary Blood Medical - DS: A/P - Patient/Caregiver Discharge Instructions Activity: increase activity as tolerated Diet: Regular Diet - Follow up Plan Follow up with: Rahul Hartmann MD [Primary Care Provider] - pcp [Other] (in 2 days) psychitry [Other] (in 3 days) Urology [Other] (in one week) Disposition: Home, Self-Care Prognosis: Fair Rehab Potential: Good Medical - DS: Qual - VTE Deep Vein Thrombosis/Pulmonary Embolism Present on Admission: No
== END 2019-11-07 16:05 | disposition home or self-care (01) | DRG 690 ==
LOC: MEDSUR 10:34 → ED 10:34 → OBSVTOIN 15:55 → MEDSUR 16:17
PROVIDERS: ADMIT Internal Medicine; ATTEND Internal Medicine

== ENCOUNTER 2024-03-03 17:37 | Inpatient (IN) ==
[2024-03-03] MEDS: morphine 4 MG/ML VIAL IM ONE (18:23)
[2024-03-03 20:11] LABS: Basophils # (Auto) 0.03 K/mcL (0.00-0.30); Basophils % (Auto) 0.4 % (0.0-2.0); Eosinophils # (Auto) 0.01 K/mcL (0.00-0.70); Eosinophils % (Auto) 0.1 % (0.0-7.0); Hematocrit 33.8 % (34.1-44.9); Hemoglobin 11.2 g/dL (11.2-15.7); Lymphocytes # (Auto) 0.59 K/mcL (1.50-4.80); Lymphocytes % (Auto) 7.7 % (15.5-49.0); Mean Cell Volume 100.3 fL (80.0-100.0); Mean Corpuscular HGB Conc 33.1 g/dL (31.0-36.0); Mean Platelet Volume 9.4 fL (8.8-12.5); Monocytes # (Auto) 0.92 K/mcL (0.10-0.90); Monocytes % (Auto) 11.9 % (1.0-12.0); Neutrophils % (Auto) 79.8 % (38.0-78.0); Platelet Count 223 K/mcL (140-440); RBC 3.37 M/mcL (3.59-5.38); Red Cell Distribution Width 13.3 % (11.5-14.5); WBC 7.7 K/mcL (4.5-11.0)
[2024-03-03 20:20] LABS: Erythrocyte Sedimentation Rate 35 mm/hr (0-30)
[2024-03-03 20:29] LABS: ALT/SGPT 17 U/L (<40); AST/SGOT 38 U/L (<32); Albumin/Globulin Ratio 1.4 (1.0-2.3); Alkaline Phosphatase 65 U/L (39-117); Bilirubin,Total 0.3 mg/dL (0.1-1.0); Blood Urea Nitrogen 14 mg/dL (8-23); C-Reactive Protein 2.55 mg/dL (0.03-0.80); Calcium 9.3 mg/dL (8.6-10.4); Carbon Dioxide 22 mmol/L (22-30); Chloride 100 mmol/L (96-108); Globulin 2.8 gm/dL (2.2-3.7); Glomerular Filtration Rate 88; Glucose 106 mg/dL (70-105); Potassium 3.8 mmol/L (3.3-5.1); Sodium 135 mmol/L (133-145)
[2024-03-03] MEDS: morphine 2 MG/ML VIAL IV ONE (20:59)
[2024-03-04 00:10] LABS: Crystals,Body Fluid None Seen (None Seen)
[2024-03-04 00:12] LABS: Glucose,Synovial Fluid 86 mg/dL
[2024-03-04 00:32] LABS: Appearance,Synovial Fluid Cloudy; Color,Synovial Fluid Orange; Lymphocytes,Synovial Fluid 4 %; Neutrophils,Synovial Fluid 81 % (0-25); Nucleated Cells,Synovial Fld 18090 /cumm; Other Cells,Synovial Fluid 15 %
[2024-03-04] MEDS: cefTRIAXone 2 GM in DEXTROSE 5% IN WATER 50 ML IV ONE (01:31)
[2024-03-04] MEDS: morphine 2 MG/ML VIAL IV PRN (02:01)
[2024-03-04] MEDS: ONDANSETRON 4 MG/2 ML VIAL IV PRN (02:01)
[2024-03-04] MEDS: VANCOMYCIN 2,000 MG in 0.9 % SODIUM CHLORIDE 500 ML IV ONE (02:01)
[2024-03-04] MEDS: VANCOMYCIN PER PHARMACY IV ONE (02:12)
[2024-03-04] MEDS: ACETAMINOPHEN 325 MG TABLET PO PRN (03:01)
[2024-03-04] MEDS: morphine 4 MG/ML VIAL IV ONE (03:14)
[2024-03-04] MEDS ORDERED: ONDANSETRON 4 MG/2 ML VIAL IV PRN (06:59)
[2024-03-04] MEDS ORDERED: VANCOMYCIN PER PHARMACY IV SCH (07:00)
[2024-03-04] MEDS: 0.9 % SODIUM CHLORIDE 1,000 ML IV SCH (07:28)
[2024-03-04] MEDS: AMPICILLIN SODIUM/SULBACTAM NA 3 GM in 0.9 % SODIUM CHLORIDE 100 ML IV SCH (07:46)
[2024-03-04] MEDS ORDERED: SCOPOLAMINE 1 PATCH PATCH TOPICAL PRN (07:58)
[2024-03-04 08:45] LABS: Appearance,Urine Clear (Clear); Bilirubin,Urine Negative (Negative); Color,Urine Yellow; Culture Indicated,Urine No; Glucose,Urine (UA) Negative (Negative); Ketones,Urine Trace mg/dL (Negative); Leukocyte Esterase,Urine Negative /uL (Negative); Nitrate,Urine Negative (Negative); PH,Urine 6.5 (5.0-9.0); Protein,Urine Negative (Negative); Urine Blood Negative ery/mcL (Negative); Urobilinogen,Urine Normal
[2024-03-04] MEDS ORDERED: VANCOMYCIN 750 MG in 0.9 % SODIUM CHLORIDE 250 ML IV SCH (09:00)
[2024-03-04] MEDS: DOCUSATE SODIUM 100 MG CAPSULE PO SCH (09:41)
[2024-03-04] MEDS ORDERED: HYDROmorphone 1 MG/ML SYRINGE ONE (11:26)
[2024-03-04] MEDS ORDERED: PROPOFOL 200 MG/20 ML VIAL IV ONE (11:26)
[2024-03-04] MEDS ORDERED: GLYCOPYRROLATE 0.2 MG/ML VIAL IV ONE (11:27)
[2024-03-04] MEDS ORDERED: DEXAMETHASONE 10 MG/ML VIAL ONE (11:27)
[2024-03-04] MEDS ORDERED: ONDANSETRON 4 MG/2 ML VIAL ONE (11:27)
[2024-03-04] MEDS ORDERED: ROCURONIUM 10 MG/ML ML IV ONE (11:32)
[2024-03-04] MEDS ORDERED: SUGAMMADEX SODIUM 200 MG/2 ML VIAL IV ONE (11:33)
[2024-03-04] MEDS ORDERED: PHENYLephrine 1 MG/10 ML SYRINGE (ANEST) ONE (12:36)
[2024-03-04] MEDS ORDERED: MAGNESIUM SULFATE 2 GM/50 ML BAG IV ONE (12:56)
[2024-03-04] MEDS: fentaNYL 100 MCG/2 ML VIAL ONE (13:31)
[2024-03-04] MEDS: 0.9 % SODIUM CHLORIDE 10 ML SYRINGE IV SCH (14:09)
[2024-03-04] MEDS ORDERED: cefTRIAXone 2 GM in DEXTROSE 5% IN WATER 50 ML IV SCH (16:00)
[2024-03-04] MEDS: HYDROcodone/APAP 5/325MG TABLET PO PRN (18:03)
[2024-03-04] MEDS: SENNOSIDES 1 TABLET PO SCH (20:30)
[2024-03-05 07:32] VITALS: TEMP 98.9; O2SAT 98
[2024-03-05] MEDS ORDERED: QUEtiapine 25 MG TABLET PO PRN (07:48)
[2024-03-05] MEDS ORDERED: traMADol 50 MG TABLET PO PRN (07:48)
[2024-03-05] MEDS ORDERED: LORazepam 0.5 MG TABLET PO PRN (07:48)
[2024-03-05] MEDS ORDERED: DICLOFENAC SODIUM 1% TOPICAL PRN (08:04)
[2024-03-05] MEDS: METOPROLOL SUCCINATE 25 MG TAB.XL.24H PO SCH (08:39)
[2024-03-05] MEDS: LOSARTAN 25 MG TABLET PO SCH (08:40)
[2024-03-05] MEDS: hydrALAZINE 25 MG TABLET PO SCH (08:40)
[2024-03-05] MEDS ORDERED: ASPIRIN 81 MG TAB.CHEW PO SCH (21:00)
[2024-03-05] MEDS ORDERED: QUEtiapine 100 MG TABLET PO SCH (21:00)
[2024-03-05] MEDS ORDERED: lamoTRIgine 100 MG TABLET PO SCH (21:00)
== END 2024-03-05 12:20 | disposition home or self-care (01) | DRG 989 ==
LOC: ED 17:37 → MEDSUR 03-04 02:14
PROVIDERS: ADMIT Internal Medicine; ATTEND Internal Medicine